=== PATIENT | female | born 1995 | race African-American/Black ===

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

== ENCOUNTER 2017-10-21 14:58 | Emergency (ER) | payer MEDICAID ==
[~2017-10-21] VITALS: Ht 170.2 cm; Wt 79.5 kg
[~2017-10-21 14:58] MED LIST changes: +DICLEGIS; +ZOFRAN8 MG PO
[2017-10-21 15:03] VITALS: TEMP 98.9
[2017-10-21 16:12] LABS: BASO % 0.2 % (0.0-2.0); EOS # 0.1 (0.0-0.7); EOS % 0.3 % (0-4.0); GRAN % 87.3 % (42.2-75.2); HEMATOCRIT 41.4 % (35.0-45.0); HEMOGLOBIN 13.8 g/dl (12.0-15.0); LYMPH # 1.3 (1.2-3.4); LYMPH % 8.5 % (20.0-51.0); MEAN CELL VOLUME 93 fl (80.0-95.0); MEAN CORPUSCULAR HEMOGLOBIN 31 pg (26.0-32.0); MEAN CORPUSCULAR HGB CONC 33 g/dl (33.0-37.0); MEAN PLATELET VOLUME 10.6 fl (7.4-10.4); MONO # 0.5 (0.1-0.6); MONO % 3.2 % (1.7-9.3); PLATELET COUNT 318 K/mm3 (130-400); RED BLOOD COUNT 4.47 M/mm3 (4.10-5.30); REDCELL DISTRIBUTION WIDTH-CV 12.5 % (11.5-14.5)
[2017-10-21 16:27] LABS: ALBUMIN 4.6 gm/dL (3.5-5.0); BILIRUBIN,TOTAL 0.5 mg/dL (0.0-1.0); CALCIUM 9.7 mg/dL (8.4-10.2); CREATININE, serum 0.61 mg/dL (0.52-1.25); TOTAL PROTEIN 8.7 gm/dL (6.4-8.2)
[2017-10-21 16:28] LABS: C-REACTIVE PROTEIN 0.5 mg/dL (0.0-0.9)
[2017-10-21] MEDS ORDERED: ATIVAN 0.50.5 MG/TAB PO (16:52)
[2017-10-21 17:05] VITALS: BP 121/67; PULSE 61
== END 2017-10-21 17:05 | disposition home or self-care (01) ==
LOC: COL.ER 14:58
PROVIDERS: Emergency Medicine
DX: R56.9 Unspecified convulsions (principal)
CPT/HCPCS: J2060; J7030

== ENCOUNTER 2018-04-26 10:30 | Emergency (ER) | payer MEDICAID ==
[~2018-04-26] VITALS: Ht 170.2 cm; Wt 80.4 kg
[~2018-04-26 10:30] MED LIST changes: +ATIVAN 0.50.5 MG/TAB PO
[2018-04-26 10:41] VITALS: BP 128/81
[2018-04-26] MEDS ORDERED: NYQUIL GENERIC PO (11:56)
[2018-04-26] MEDS ORDERED: PREDNISONE20 MG PO (13:31)
[2018-04-26] MEDS ORDERED: PROAIR HFA0.09 MG/AC IH (13:31)
[2018-04-26] MEDS ORDERED: AEROCHAMBER Z-S1 DEV IH (13:33)
[2018-04-26 14:00] VITALS: PULSE 74; TEMP 97.1
== END 2018-04-26 14:00 | disposition home or self-care (01) ==
LOC: COL.ER 10:30
DX: J06.9 Acute upper respiratory infection, unspecified (principal); J45.901 Unspecified asthma with (acute) exacerbation

== ENCOUNTER 2018-12-22 14:08 | Emergency (ER) | payer SELFPAY ==
[~2018-12-22] VITALS: Ht 170.2 cm; Wt 77.3 kg
[~2018-12-22 14:08] MED LIST changes: +AEROCHAMBER Z-S1 DEV IH; +NYQUIL GENERIC PO; +PREDNISONE20 MG PO; +PROAIR HFA0.09 MG/AC IH
[2018-12-22 15:21] LABS: ALBUMIN 4.4 gm/dL (3.5-5.0); BILIRUBIN,TOTAL 0.4 mg/dL (0.0-1.0); CALCIUM 9.3 mg/dL (8.4-10.2); CREATININE, serum 0.58 (0.52-1.25); POTASSIUM 3.7 mmol/L (3.4-5.0)
[2018-12-22 15:26] LABS: BASO % 0.3 % (0.0-2.0); EOS # 0.1 (0.0-0.7); EOS % 0.6 % (0-4.0); GRAN # 7.5 (1.4-6.5); GRAN % 79.6 % (42.2-75.2); HEMATOCRIT 36.4 % (37.0-47.0); HEMOGLOBIN 11.9 g/dl (12.5-16.0); LYMPH # 1.4 (1.2-3.4); LYMPH % 14.4 % (20.0-51.0); MEAN CELL VOLUME 95 fl (80.0-100.0); MEAN CORPUSCULAR HEMOGLOBIN 31 pg (27.0-31.0); MEAN CORPUSCULAR HGB CONC 33 g/dl (33.0-37.0); MEAN PLATELET VOLUME 10.8 fl (7.4-10.4); MONO # 0.5 (0.1-0.6); MONO % 4.9 % (1.7-9.3); PLATELET COUNT 325 K/mm3 (130-400); RED BLOOD COUNT 3.85 M/mm3 (4.10-5.30); REDCELL DISTRIBUTION WIDTH-CV 12.3 % (11.5-14.5)
[2018-12-22 15:37] LABS: PROLACTIN 36.8 ng/mL (3.0-18.6)
[2018-12-22] MEDS ORDERED: ATIVAN 0.50.5 MG/TAB PO (16:00)
[2018-12-22 16:35] VITALS: BP 126/76; PULSE 79; TEMP 98.1
== END 2018-12-22 16:43 | disposition home or self-care (01) ==
LOC: COL.ER 14:08
PROVIDERS: Emergency Medicine
DX: R56.9 Unspecified convulsions (principal); J45.909 Unspecified asthma, uncomplicated; F41.9 Anxiety disorder, unspecified
CPT/HCPCS: J1885; J2060; J2405; J7030

== ENCOUNTER 2019-03-23 15:22 | Emergency (ER) | payer MEDICAID ==
[~2019-03-23] VITALS: Ht 170.2 cm; Wt 75.0 kg
[2019-03-23 15:24] VITALS: TEMP 97.9
[2019-03-23 16:17] LABS: BASO % 0.3 % (0.0-2.0); EOS # 0.1 (0.0-0.7); EOS % 1.1 % (0-4.0); GRAN # 7.9 (1.4-6.5); GRAN % 64.3 % (42.2-75.2); HEMOGLOBIN 11.6 g/dl (12.5-16.0); LYMPH # 3.6 (1.2-3.4); LYMPH % 29.2 % (20.0-51.0); MEAN CELL VOLUME 95 fl (80.0-100.0); MEAN CORPUSCULAR HEMOGLOBIN 31 pg (27.0-31.0); MEAN CORPUSCULAR HGB CONC 33 g/dl (33.0-37.0); MEAN PLATELET VOLUME 10.4 fl (7.4-10.4); MONO # 0.6 (0.1-0.6); MONO % 4.8 % (1.7-9.3); PLATELET COUNT 360 K/mm3 (130-400); RED BLOOD COUNT 3.71 M/mm3 (4.10-5.30)
[2019-03-23 16:29] LABS: HEMATOCRIT 35.1 % (37.0-47.0)
[2019-03-23 16:30] LABS: ALANINE AMINOTRANSFERASE 16 U/L (9-52); ALBUMIN 4.5 gm/dL (3.5-5.0); ALKALINE PHOSPHATASE 53 U/L (50-136); ANION GAP 13 mmol/L (7-16); AST,SGOT 21 U/L (15-37); BILIRUBIN,TOTAL 0.4 mg/dL (0.0-1.0); BLOOD UREA NITROGEN 15 mg/dL (7-17); CALCIUM 9.1 mg/dL (8.4-10.2); CARBON DIOXIDE 20 mmol/L (22-30); CHLORIDE 107 mmol/L (98-107); GLUCOSE 145 mg/dL (74-106); POTASSIUM 3.2 mmol/L (3.4-5.0); SODIUM 139 mmol/L (137-145); TOTAL PROTEIN 8.1 gm/dL (6.4-8.2)
[2019-03-23 16:33] LABS: ALCOHOL(ethanol),MEDICAL < 10 mg/dL
[2019-03-23 16:45] LABS: PROLACTIN 181.2 ng/mL (3.0-18.6)
[2019-03-23] MEDS ORDERED: NORCO 325 MG-51 TAB PO (17:07)
[2019-03-23] MEDS ORDERED: KEPPRA 500MG500 MG PO (17:14)
[2019-03-23 17:57] VITALS: BP 129/88; PULSE 60
== END 2019-03-23 17:57 | disposition home or self-care (01) ==
LOC: COL.ER 15:22
PROVIDERS: Family Medicine
DX: S43.004A Unspecified dislocation of right shoulder joint, initial encounter (principal); G40.909 Epilepsy, unspecified, not intractable, without status epilepticus; F13.239 Sedative, hypnotic or anxiolytic dependence with withdrawal, unspecified; F41.9 Anxiety disorder, unspecified; J45.909 Unspecified asthma, uncomplicated; Z88.8 Allergy status to other drugs, medicaments and biological substances; W06.XXXA Fall from bed, initial encounter
CPT/HCPCS: J1953; J2405; J2704; J3010; J7030

== ENCOUNTER 2019-08-04 15:19 | Emergency (ER) | payer MEDICAID ==
[~2019-08-04] VITALS: Ht 170.2 cm; Wt 75.0 kg
[~2019-08-04 15:19] MED LIST changes: +KEPPRA 500MG500 MG PO
[2019-08-04 15:26] VITALS: BP 135/75; TEMP 98.9
[2019-08-04 15:40] LABS: COLLECTION METHOD CLEAN CATCH
[2019-08-04 15:48] LABS: MUCOUS Present /lpf; PH 6 (5-8); SQUAMOUS EPITHELIAL 0-2 /hpf; URINE APPEARANCE Clear; URINE BACTERIA None Seen /hpf; URINE BILIRUBIN Negative (NEGATIVE); URINE BLOOD Negative (NEGATIVE); URINE COLOR Yellow; URINE GLUCOSE Negative (NEGATIVE); URINE KETONE 2+ (NEGATIVE); URINE LEUKOCYTE ESTERASE Negative (NEGATIVE); URINE NITRATE Negative (NEGATIVE); URINE PROTEIN(semi-quant) Negative (NEGATIVE); URINE RBC 0-2 /hpf; URINE UROBILINOGEN >=4.0 mg/dL (NEGATIVE)
[2019-08-04 16:27] LABS: BASO % 0.3 % (0.0-2.0); EOS # 0.1 (0.0-0.7); EOS % 1.3 % (0-4.0); GRAN # 7.2 (1.4-6.5); GRAN % 70.1 % (42.2-75.2); HEMOGLOBIN 12.8 g/dl (12.5-16.0); LYMPH # 2.3 (1.2-3.4); LYMPH % 22.4 % (20.0-51.0); MEAN CELL VOLUME 94 fl (80.0-100.0); MEAN CORPUSCULAR HEMOGLOBIN 32 pg (27.0-31.0); MEAN CORPUSCULAR HGB CONC 34 g/dl (33.0-37.0); MEAN PLATELET VOLUME 10.5 fl (7.4-10.4); MONO # 0.6 (0.1-0.6); MONO % 5.6 % (1.7-9.3); PLATELET COUNT 312 K/mm3 (130-400); RED BLOOD COUNT 4.05 M/mm3 (4.10-5.30); REDCELL DISTRIBUTION WIDTH-CV 12.2 % (11.5-14.5)
[2019-08-04 17:16] VITALS: PULSE 60
== END 2019-08-04 17:16 | disposition home or self-care (01) ==
LOC: COL.ER 15:19
PROVIDERS: Emergency Medicine; Nurse Practitioner Primary Care
DX: O21.9 Vomiting of pregnancy, unspecified (principal)
CPT/HCPCS: J2405; J7120